=== PATIENT | male | born 1985 | race Caucasian/White ===

== ENCOUNTER 2018-11-21 11:24 | Emergency (ER) | payer OTHER ==
[~2018-11-21] VITALS: Ht 172.7 cm; Wt 99.3 kg
[2018-11-21 11:25] VITALS: BP 138/76
[2018-11-21] MEDS ORDERED: ZITHTAB PO (12:08)
[2018-11-21] MEDS ORDERED: MAGICMW SSP (12:08)
--- NOTE | 2018-11-21 12:27 | REP ---
CHEST, TWO VIEWS: There is no evidence of acute infiltrate. No pleural effusion is seen. The heart is normal in size. The mediastinal silhouette is unremarkable. The visualized osseous structures are intact. IMPRESSION: No acute pulmonary disease. Electronically Signed by Vikram Alarcon MD 11/21/2018 03:48 P
== END 2018-11-21 12:13 | disposition home or self-care (01) ==
LOC: M ED 11:24
DX: J02.9 Acute pharyngitis, unspecified (principal); J06.9 Acute upper respiratory infection, unspecified; Z88.0 Allergy status to penicillin

== ENCOUNTER → 2018-11-25 | Outpatient (CLI) | payer OTHER ==
[~2018-11-25] MED LIST: MAGICMW SSP; ZITHTAB PO
--- NOTE | 2018-11-25 11:32 | REP ---
Right Foot series: Four views. History: Unspecified injury. Lungs: Four views of the right foot demonstrate overall normal mineralization. No fracture or subluxation is seen. There is no radiographic evidence of arthropathy. Plantar calcaneal spurring is noted. Impression: Plantar heel spur. Otherwise negative radiographs right foot. Electronically Signed by Paramjit Meza MD 11/25/2018 11:23 A
--- NOTE | 2018-11-25 11:41 | REP ---
Right ankle series: Four views. History: Injury. Findings: Four views of the right ankle demonstrate plantar calcaneal spurring. Ankle mortise is intact. No fractures seen. Bones, joints, and soft tissues are otherwise unremarkable. Impression: Plantar heel spur. Otherwise negative right ankle radiographs. Electronically Signed by Paramjit Meza MD 11/25/2018 11:33 A
== END ==
LOC: M LRY 10:38
PROVIDERS: ATTEND Nurse Practitioner Family
DX: M77.31 Calcaneal spur, right foot (principal)
CPT/HCPCS: 73610; 73630; G0463